=== PATIENT | male | born 1995 | race African-American/Black ===

== ENCOUNTER 2018-01-22 09:58 | Emergency (ER) | payer BC ==
[~2018-01-22] VITALS: Ht 185.4 cm; Wt 74.8 kg
[2018-01-22 09:58] VITALS: BP 132/70
[2018-01-22] MEDS ORDERED: MOBIC15 MG PO (10:34)
[2018-01-22] MEDS ORDERED: MEDROLDOSEPACK PO (10:34)
== END 2018-01-22 10:43 | disposition home or self-care (01) ==
LOC: ER 09:58
DX: M25.511 Pain in right shoulder (principal)

== ENCOUNTER 2019-02-28 08:10 | Emergency (ER) | payer BC ==
[~2019-02-28] VITALS: Ht 190.5 cm; Wt 74.8 kg
[~2019-02-28 08:10] MED LIST: MEDROLDOSEPACK PO; MOBIC15 MG PO
[2019-02-28 09:22] LABS: ABSOLUTE NEUTROPHILS 7.7 thou/uL (1.4-8.2); BASOPHILS 0.3 % (0.0-2.0); EOSINOPHILS 1.3 % (0.0-3.0); HEMATOCRIT 42.2 % (42.0-52.0); HEMOGLOBIN 14.1 gm/dL (14.0-18.0); LYMPHOCYTES 12.6 % (24.0-44.0); MCH 27.4 pg (26.0-34.0); MCHC 33.5 g/dL (28.0-37.0); PLATELET COUNT 291 thou/uL (150-400); POLYS 78.8 % (36.0-66.0); RBC 5.14 mil/uL (4.50-6.00); RDW 12.9 % (10.5-14.5); WBC 9.8 thou/uL (4.0-11.0)
[2019-02-28 09:29] LABS: CALCIUM 6.5 mg/dL (8.5-10.1); CREATININE 0.5 mg/dL (0.7-1.3)
[2019-02-28 09:30] LABS: POTASSIUM 2.9 mmol/L (3.5-5.1)
[2019-02-28] MEDS ORDERED: LEVAQUIN 500 M500 M2 PO (11:21)
[2019-02-28] MEDS ORDERED: FLAGYL500 M1 PO (11:21)
[2019-02-28 11:28] VITALS: BP 161/85
== END 2019-02-28 11:45 | disposition home or self-care (01) ==
LOC: ER 08:10
PROVIDERS: Emergency Medicine
DX: K61.0 Anal abscess (principal)